=== PATIENT | female | born 1965 | race Caucasian/White ===

== ENCOUNTER → 2016-11-07 | Outpatient (CLI) | payer BC ==
[~2016-11-07] MED LIST: ARTHROTEC 550 MG/TAB PO; ARTHROTEC 775 MG/TAB PO; B-121000 MCG PO; CALCIUM 500 + D1 TA2 PO; CEPHALEXIN500 M1 PO; CETIRIZINE; ESTRADIOL; IMITREX100 MG PO; IRON TABLETS325 MG PO; IRON325 MG PO; LEXAPRO 10MG10 MG PO; MYLICON; NORCO 325 MG-51 TAB PO; NORCO 325 MG-7.1 TAB PO; OMEGA-31 SGL PO; PEPCID AC 10MG10 MG PO; POTASSIUM GLUCO80 MG PO; PREDNISONE20 MG PO; PREMARIN PO; PRILOSEC 20MG20 MG PO; PROTONIX 40MG T40 MG PO; ROBAXIN 50500 MG/TAB PO; VITAMIN B-1000 MCG/T PO; VITAMIN D31000 IU PO; XANAX .25M0.25 MG/TA PO; ZOLOFT100 MG PO; [UNRECOGNIZED DRUG - OTHER]
== END ==
LOC: COL.RAD 07:10
DX: K44.9 Diaphragmatic hernia without obstruction or gangrene (principal); D35.01 Benign neoplasm of right adrenal gland; R10.12 Left upper quadrant pain
CPT/HCPCS: Q9967

== ENCOUNTER → 2016-12-08 | Outpatient (CLI) | payer OTHER, BC | LOC: COL.RAD 07:40 | DX: S82.142A Displaced bicondylar fracture of left tibia, initial encounter for closed fracture (principal); M25.062 Hemarthrosis, left knee ==

== ENCOUNTER 2016-12-12 05:47 | Day surgery (SDC) | payer OTHER, BC ==
[~2016-12-12] VITALS: Ht 167.6 cm; Wt 70.7 kg
[~2016-12-12 05:47] MED LIST changes: -ARTHROTEC 550 MG/TAB PO; -B-121000 MCG PO; -IMITREX100 MG PO; -IRON325 MG PO; -NORCO 325 MG-7.1 TAB PO; -OMEGA-31 SGL PO; -PEPCID AC 10MG10 MG PO; -VITAMIN D31000 IU PO; -XANAX .25M0.25 MG/TA PO
[2016-12-12 06:24] VITALS: BP 115/77; PULSE 68; TEMP 97.4
[2016-12-12] MEDS ORDERED: ARTHROTEC 550 MG/TAB PO (06:39)
[2016-12-12] MEDS ORDERED: XANAX .25M0.25 MG/TA PO (06:39)
[2016-12-12] MEDS ORDERED: IMITREX100 MG PO (06:40)
[2016-12-12] MEDS ORDERED: PEPCID AC 10MG10 MG PO (06:42)
[2016-12-12] MEDS ORDERED: VITAMIN D31000 IU PO (06:43)
[2016-12-12] MEDS ORDERED: B-121000 MCG PO (06:44)
[2016-12-12] MEDS ORDERED: IRON325 MG PO (06:45)
[2016-12-12] MEDS ORDERED: OMEGA-31 SGL PO (06:46)
[2016-12-12 10:20] VITALS: BP 126/85; PULSE 62; TEMP 97.2
[2016-12-12 10:40] VITALS: BP 115/71; PULSE 56
[2016-12-12] MEDS ORDERED: NORCO 325 MG-7.1 TAB PO (10:54)
== END 2016-12-12 11:25 | disposition home or self-care (01) ==
LOC: SDCO 05:47
DX: S82.122A Displaced fracture of lateral condyle of left tibia, initial encounter for closed fracture (principal); V89.9XXA Person injured in unspecified vehicle accident, initial encounter
CPT/HCPCS: C1713; J0690; J1100; J1885; J2250; J2405; J2704; J3010; J7120

== ENCOUNTER 2017-02-27 09:45 | Outpatient (RCR) | payer BC, OTHER ==
[~2017-02-27 09:45] MED LIST changes: +ARTHROTEC 550 MG/TAB PO; +B-121000 MCG PO; +IMITREX100 MG PO; +IRON325 MG PO; +NORCO 325 MG-7.1 TAB PO; +OMEGA-31 SGL PO; +PEPCID AC 10MG10 MG PO; +VITAMIN D31000 IU PO; +XANAX .25M0.25 MG/TA PO
== END 2017-02-27 12:15 | disposition home or self-care (01) ==
LOC: WSPT 09:45
DX: Z47.89 Encounter for other orthopedic aftercare (principal); S82.122D Displaced fracture of lateral condyle of left tibia, subsequent encounter for closed fracture with routine healing

== ENCOUNTER → 2017-09-11 | Outpatient (CLI) | payer BC | LOC: MC.RAD 10:11 | DX: Z12.31 Encounter for screening mammogram for malignant neoplasm of breast (principal) ==

== ENCOUNTER → 2019-04-08 | Outpatient (CLI) | payer BC | LOC: MC.RAD 09:44 | DX: Z12.31 Encounter for screening mammogram for malignant neoplasm of breast (principal) ==

== ENCOUNTER 2020-02-10 10:19 | Day surgery (SDC) | payer BC ==
[~2020-02-10] VITALS: Ht 167.6 cm; Wt 64.3 kg
[2020-02-10 10:42] VITALS: BP 134/91; PULSE 69; TEMP 97.6
[2020-02-10] MEDS ORDERED: PRILOSEC 20MG20 MG PO (10:49)
[2020-02-10] MEDS ORDERED: NATURAL IRON65 MG PO (10:50)
--- NOTE | 2020-02-10 10:52 | NUR ---
TO RM AT 1024- CALL LIGHTIN REACH SISTER AT BEDSIDE.
[2020-02-10 11:55] VITALS: BP 136/88; PULSE 102
--- NOTE | 2020-02-10 11:55 | NUR ---
TO BAY 7 PER CART FROM ENDOSCOPY. ALERT ORIENTED X3, TALKING TO SISTER AND STAFF. AMBULATED TO RECLINER WITH ASSIST. RECEIVED WATER AND TAKING SIPS. REFUSED ANYTHING TO EAT.
[2020-02-10 12:00] VITALS: BP 130/89; PULSE 93
--- NOTE | 2020-02-10 12:10 | NUR ---
DR FRAUSTO INTO TALK WITH PATIENT AND SISTER.
--- NOTE | 2020-02-10 12:20 | NUR ---
RECEIVED DISCHARGE INSTRUCTIONS AND VERBALIZED UNDERSTANDING. PATIENT GETTING DRESSED.
--- NOTE | 2020-02-10 12:24 | NUR ---
DISCHARGED PER WC BY NURSING STAFF TO PRIVATE CAR IN CARE OF SISTER OLIVER.
== END 2020-02-10 12:25 | disposition home or self-care (01) ==
LOC: SDCO 10:19
DX: K92.1 Melena (principal); Z83.71 Family history of colonic polyps; Z80.0 Family history of malignant neoplasm of digestive organs; K64.8 Other hemorrhoids; D64.9 Anemia, unspecified; Q27.30 Arteriovenous malformation, site unspecified; Z98.84 Bariatric surgery status
CPT/HCPCS: J2250; J3010; J7030

== ENCOUNTER → 2021-08-09 | Outpatient (CLI) | payer BC ==
[~2021-08-09] MED LIST changes: +NATURAL IRON65 MG PO
== END ==
LOC: MC.RAD 09:34
DX: Z12.31 Encounter for screening mammogram for malignant neoplasm of breast (principal)